=== PATIENT | female | born 1975 | race African-American/Black ===

== ENCOUNTER → 2023-03-25 12:48 | Outpatient (REF) | payer BC, SELFPAY | LOC: RAD 12:48 | PROVIDERS: ATTENDING PHYSICIAN Physician Assistant; FAMILY PHYSICIAN Family Medicine | DX: I77.0 Arteriovenous fistula, acquired (principal) | CPT/HCPCS: 93990 ==

== ENCOUNTER 2023-04-09 08:37 | Day surgery (SDC) | payer BC, SELFPAY ==
[2023-04-09 08:48] VITALS: BMI 30.1
[2023-04-09 09:11] LABS: Glucose - Point of Care 123 mg/dl (70-99)
[2023-04-09 09:19] LABS: Hematocrit 37.2 % (37.0-47.0); Hemoglobin 11.6 g/dL (12.0-16.0); Mean Corp Hgb Conc. 31.2 g/dL (33.0-37.0); Mean Corpuscular Hgb 26.4 pg (27.0-31.0); Mean Corpuscular Volume 84.5 fL (81.0-99.0); Mean Platelet Volume 9.4 fL (7.4-10.4); Platelet Count 493 10^3/uL (130-400); Red Cell Dist. Width 20.9 % (11.5-14.5); White Blood Cell Count 6.9 10^3/uL (4.8-10.8)
[2023-04-09 09:33] VITALS: BP 93/54
[2023-04-09 09:34] LABS: APTT 31.5 Sec (23.4-35.0); INR 1.15; PT 14.5 Sec (11.4-14.6)
[2023-04-09 09:50] VITALS: BMI 30.1
[2023-04-09 10:16] LABS: Blood Urea Nitrogen 38 mg/dl (7-17); Calcium 9.3 mg/dl (8.4-10.2); Carbon Dioxide 27 mmol/L (22-30); Chloride 97 mmol/L (98-107); Estimated Creatinine Clearance 6 ml/min; Glucose 142 mg/dl (70-99); Potassium 3.9 mmol/L (3.5-5.1); Sodium 134 mmol/L (135-145); eGFR 3.58
--- NOTE | 2023-04-09 10:18 | W.SUR.PREOP ---
Pre-Operative Surgical Note
-
Patient seen and examined in the preop holding area. Recent dialysis access duplex once again reviewed. She reports difficulty with needle cannulation at [facility] last week. This was the first attempted access of the newly created LUE brachiocephalic AVF.
On exam the AVF has a strong thrill throughout the course in the upper arm. Some slight bruising over the upper arm. Non tender.
Will plan to proceed with diagnostic AVF'gram, central venogram and possible endovascular intervention. Technical aspects of the procedure were discussed with her in detail. Benefits and rationale for the approach were discussed with her in detail.
Operative risks discussed with her in detail including but not limited to bleeding, AVF injury, thrombosis of the fistula, distal embolization, arm ischemia, need for additional procedures. She expressed a clear understanding of our conversation and
agrees to proceed as detailed above.
I have examined this patient prior to the performance of the scheduled procedure.
The patient's condition is unchanged from the time of the current History and
Physical and the patient is able to undergo the scheduled procedure.
Gabriel Brush MD
Vascular Surgery
[2023-04-09 11:25] VITALS: BP 98/54; BP_SYST 23
--- NOTE | 2023-04-09 11:25 | W.IMMPOSTOP ---
Surgical Immed Post Op Note
-
Primary Surgeon: Gabriel Brush III, MD
Assisting Surgeon: Gurmeet Vazquez MD
Pre-op Diagnosis: ESRD
Post-op Diagnosis: ESRD
Procedure Performed: LUE fistulogram, central venogram
Anesthesia Type: light sedation
Specimen / Cultures: na
Estimated Blood Loss: 2cc
Complications: none
Operative Findings:
Fistula widely dilated and patent with strong flows. Small hematoma noted over branch vessel, possibly contributing to issues with access as previously described. Appropriate landing area for future access marked on LUE. Area of hematoma noted
(avoid access).
[2023-04-09 11:26] VITALS: BP 98/54
[2023-04-09 11:30] VITALS: BP 96/57; BP_SYST 23
[2023-04-09 11:45] VITALS: BP 104/56; BP_SYST 22
--- NOTE | 2023-04-09 16:37 | OR.RPT ---
Operative Report
Operative Report
Date of Operation: 04/09/2023
Pre Op Diagnosis: Recently created left upper extremity brachiocephalic AV fistula. Difficulty with needle cannulation
Post Op Diagnosis: Recently created left upper extremity brachiocephalic AV fistula. Difficulty with needle cannulation
Procedure:
1.) Diagnostic left upper extremity fistulogram
2.) Left central venogram
3.) Ultrasound-guided percutaneous access to the left upper extremity brachiocephalic AV fistula
Surgeon: Gabriel Brush III, MD
Yarder Engineer: Gurmeet Vazquez MD PGY-1
Anesthesia: Sedation/local
Complications: None
Fluoroscopy:
1.6 minutes
8 mGy
2.46 DAP
History and Indications for Procedure: 47-year-old female with recently created left upper extremity AV fistula. On the initial attempts at needle cannulation the dialysis center encountered difficulty. I brought her to the operating room for
diagnostic fistulogram and possible endovascular intervention.
Procedure in Detail: Anamika Elias was correctly identified and placed supine on the operating table. After adequate induction of anesthesia the left arm was positioned, prepped and draped in the usual sterile fashion. Preoperative antibiotics
were administered. A timeout procedure was performed with the nursing and anesthesia staff confirming the patient�s identity as well as the nature and laterality of the procedure.
Intraoperative ultrasound was performed on the AV access. This was a brachiocephalic arteriovenous fistula. The fistula was patent. The depth of the fistula relative to the skin in the mid arm was between 5 to 10 mm
I identified a puncture site along the vein and infiltrated local anesthesia at this site. Under ultrasound guidance I accessed the fistula with a micropuncture needle facing towards the venous outflow and placed the micropuncture sheath. I
performed a fistulogram through the micropuncture sheath which demonstrated the following:
Fistulogram: Patent brachiocephalic AV fistula. Cephalic vein widely patent along its entire course with no stenosis identified. Brisk flow throughout the fistula. Compression of the cephalic vein in the mid upper arm with reflux fistulogram
demonstrated a patent arteriovenous anastomosis with no stenosis identified.
Central venogram: Widely patent central venous system with brisk flow and no stenosis identified.
Satisfied with this diagnostic result I then concluded the procedure. The micropuncture sheath was removed and direct manual pressure was held over the puncture site. Hemostasis was achieved. A sterile dressing was applied.
The patient tolerated the procedure well and was taken to the PACU in stable condition
Attestation: I was present and responsible for the entire procedure
Signed:
Gabriel Brush III, MD
[facility]
[phone] (cell)
== END 2023-04-09 13:15 | disposition home or self-care (01) ==
LOC: CATH 08:37
PROVIDERS: ATTENDING PHYSICIAN Surgery Vascular Surgery; FAMILY PHYSICIAN Family Medicine
DX: T82.898A Other specified complication of vascular prosthetic devices, implants and grafts, initial encounter (principal); Y83.8 Other surgical procedures as the cause of abnormal reaction of the patient, or of later complication, without mention of misadventure at the time of the procedure; I13.11 Hypertensive heart and chronic kidney disease without heart failure, with stage 5 chronic kidney disease, or end stage renal disease; N18.6 End stage renal disease; Z99.2 Dependence on renal dialysis; E78.5 Hyperlipidemia, unspecified; R73.9 Hyperglycemia, unspecified; Z79.82 Long term (current) use of aspirin; Z79.84 Long term (current) use of oral hypoglycemic drugs
CPT/HCPCS: 36901; 76937; 80048; 82962; 85027; 85610; 85730; 86850; 86900; 86901; Q9967